=== PATIENT | female | born 1980 | race Caucasian/White ===

== ENCOUNTER → 2020-10-10 10:56 | Outpatient (CLI) | payer BC, SELFPAY ==
--- NOTE | ~2020-10-10 | CT_ITS ---
EXAMINATION: CT brain wo con EXAM DATE: 10/10/2020 11:10 INDICATION: Headache, dizziness. TECHNIQUE: Spiral CT of the head was performed without contrast. Axial, coronal and sagittal images were reviewed. The dose-length product (DLP) for this examination was 599.57 mGy-cm. The exposure w as tailored according to patient size, and iterative reconstruction (ASIR) was used as additional dos e reduction technique. There is no prior study for comparison. FINDINGS: There is no acute intraparenchymal hemorrhage. No evidence of intraparenchymal brain mass lesion. No evidence of acute infarction. There is no mass effect or midline shift. The ventricles are normal in size. There are no extra-axial collections. There are no acute calvarial fractures. T he orbits are unremarkable. Soft tissue is unremarkable. The visualized sinuses and mastoid air samantha ls are well aerated. IMPRESSION: 1. Unremarkable head CT examination. Reviewed, dictated and finalized at location A.
== END ==
PROVIDERS: Visit Provider Pediatrics
DX: G44.209 Tension-type headache, unspecified, not intractable (principal); G47.00 Insomnia, unspecified
CPT/HCPCS: 70450

== ENCOUNTER → 2020-10-25 11:09 | Outpatient (CLI) | payer BC, SELFPAY ==
--- NOTE | ~2020-10-25 | US_ITS ---
EXAMINATION: US thyroid EXAM DATE: 10/25/2020 11:38 INDICATION: Nontoxic single thyroid nodule. Prior thyroid biopsy 2 years ago with benign results. TECHNIQUE: Multiple grayscale and Doppler images of the thyroid were obtained (by a technologist who performed the scan) and subsequently reviewed. Individual nodules and recommendations may be reporte d in accordance with TI-RADS system as designated by the 2017 ACR White Paper TI-RADS committee. The re is no prior study for comparison. FINDINGS: The right thyroid lobe measures 7.0 x 2.1 x 2.1 cm, the left measuring 7.0 x 2.1 x 2.2 cm. Diffusely mildly heterogeneous thyroid echogenicity with multiple category TR 4 thyroid nodules. No microcalcif ications within these. The largest heterogeneous region is in the right thyroid lobe, measures 2.5 x 1.4 x 1.4 cm with lobular margin. This may have been the region biopsied given it is the largest? The others are less than 1.5 cm in size. IMPRESSION: Multinodular goiter. Reviewed, dictated and finalized at location A. IMPRESSION: Multinodular goiter.
== END ==
PROVIDERS: PCP Pediatrics; Visit Provider Otolaryngology
DX: E04.2 Nontoxic multinodular goiter (principal)
CPT/HCPCS: 76536